=== PATIENT | female | born 1955 | race Caucasian/White ===

== ENCOUNTER 2019-02-06 12:37 | Emergency (ER) | payer MEDICARE ==
[~2019-02-06] VITALS: Ht 160 cm; Wt 98.0 kg
[2019-02-06] MEDS ORDERED: ALEVE220 MG PO (12:58)
[2019-02-06] MEDS ORDERED: METHYLPREDNISOLO4 M1 PO (13:37)
[2019-02-06] MEDS ORDERED: KETOROLAC TROME10 MG PO (13:37)
[2019-02-06] MEDS ORDERED: BACLOFEN10 MG PO (13:37)
== END 2019-02-06 13:46 | disposition home or self-care (01) ==
LOC: ED 12:37
DX: M54.2 Cervicalgia (principal); Z87.891 Personal history of nicotine dependence
CPT/HCPCS: 99283